=== PATIENT | male | born 1970 | race African-American/Black ===

== ENCOUNTER 2022-04-10 21:56 | Emergency (ER) | payer BC ==
[2022-04-10] MEDS ORDERED: traMADol HCl 50 MG TAB ONE (22:51)
== END 2022-04-10 22:56 | disposition home or self-care (01) ==
LOC: NAV ERS 21:56
DX: S67.01XA Crushing injury of right thumb, initial encounter (principal); I10 Essential (primary) hypertension; E78.5 Hyperlipidemia, unspecified; Z79.899 Other long term (current) drug therapy; W23.0XXA Caught, crushed, jammed, or pinched between moving objects, initial encounter
CPT/HCPCS: 11740